=== PATIENT | male | born 1985 | race Two or more races ===

== ENCOUNTER 2017-06-12 17:47 | Emergency (ER) | payer MEDICAID, OTHER ==
[~2017-06-12] VITALS: Ht 350.5 cm; Wt 86.2 kg
[2017-06-12 18:26] VITALS: BP 134/97
[2017-06-12] MEDS ORDERED: BACLOFEN 10 MG TAB PO ONE (19:45)
[2017-06-12] MEDS ORDERED: IBUPROFEN 600 MG TAB PO ONE (19:45)
== END 2017-06-12 20:37 | disposition home or self-care (01) ==
LOC: ER 17:53
DX: M54.2 Cervicalgia (principal); Z88.0 Allergy status to penicillin; V49.9XXA Car occupant (driver) (passenger) injured in unspecified traffic accident, initial encounter; Y93.89 Activity, other specified; Y99.8 Other external cause status; Y92.488 Other paved roadways as the place of occurrence of the external cause